=== PATIENT | female | born 1995 | race African-American/Black ===

== ENCOUNTER 2022-01-28 10:49 | Emergency (ER) | payer MEDICAID ==
[~2022-01-28] VITALS: Ht 160 cm; Wt 158.3 kg
[2022-01-28 10:53] VITALS: BP 148/81
[2022-01-28] MEDS ORDERED: IBUP-2213 PO (11:47)
[2022-01-28 11:59] VITALS: BP 148/81
== END 2022-01-28 11:59 | disposition home or self-care (01) ==
LOC: MED 10:49
DX: R07.89 Other chest pain (principal); R06.02 Shortness of breath; J45.909 Unspecified asthma, uncomplicated; Z79.899 Other long term (current) drug therapy
CPT/HCPCS: 93005; 99283